=== PATIENT | female | born 1955 | race Caucasian/White ===

== ENCOUNTER 2022-10-25 14:57 | Emergency (ER) | payer MEDICARE ==
[~2022-10-25] VITALS: Ht 157.5 cm; Wt 85.3 kg
[~2022-10-25 14:57] MED LIST: ALPRAZOLAM1 MG PO; CATAPRES0.1 MG PO; MECLIZINE HCL25 MG PO; MIRTAZAPINE15 MG PO; MONTELUKAST SOD10 MG PO; OXYCONTIN10 MG PO; PAROXETINE HCL20 MG PO; PROAIR HFA8.5 GM INH; TIZANIDINE HCL2 M1 PO; ZITHROMAX250 MG PO; ZOFRAN ODT4 MG PO
--- OUTSIDE RECORDS SUMMARY | 2022-10-25 15:00 | XMS ---
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 Rena has no Care Guidelines for this patient. Rachel VISIT COUNT (12 MO.) 1 ADELINA Draper TOTAL 1 NOTE: Visits indicate total known visits. ED/UCC VISIT TRACKING (12 MO.) 10/25/2022 14:58 [facility] [place] TYPE: Emergency COMPLAINT: - ABDOMINAL PAIN INPATIENT VISIT TRACKING (12 MO.) No inpatient visits to display in this time frame [email or web address]
[2022-10-25] MEDS ORDERED: DICYCLOMINE HCL20 MG PO (15:23)
[2022-10-25] MEDS ORDERED: ATENOLOL25 MG PO (15:23)
[2022-10-25] MEDS ORDERED: ALPRAZOLAM1 MG PO (15:23)
[2022-10-25] MEDS ORDERED: DULOXETINE HCL20 MG PO (15:23)
[2022-10-25] MEDS ORDERED: AMOX TR-K CLV1 EAC1 PO (16:57)
[2022-10-25] MEDS ORDERED: ONDANSETRON ODT8 MG PO (16:57)
== END 2022-10-25 17:45 | disposition home or self-care (01) ==
LOC: ED 14:57
DX: K57.32 Diverticulitis of large intestine without perforation or abscess without bleeding (principal); Z87.891 Personal history of nicotine dependence
CPT/HCPCS: 36415; 74177; 80053; 81001; 83690; 85025; 99284-25; A9270; J1885; J7040; Q9967

== ENCOUNTER 2022-11-10 12:47 | Emergency (ER) | payer MEDICARE ==
[~2022-11-10] VITALS: Ht 157.5 cm; Wt 83.9 kg
[~2022-11-10 12:47] MED LIST changes: +AMOX TR-K CLV1 EAC1 PO; +ATENOLOL25 MG PO; +DICYCLOMINE HCL20 MG PO; +DULOXETINE HCL20 MG PO; +ONDANSETRON ODT8 MG PO
--- OUTSIDE RECORDS SUMMARY | 2022-11-10 12:50 | XMS ---
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 Rena has no Care Guidelines for this patient. [facility]12 MO[facility]: Visits indicate total known visits. ED/C VISIT TRACKING (12 MO.) [facility] COMPLAINT: - ABDOMINAL PAIN 10/25/2022 14:[address] [facility] [place] TYPE: Emergency COMPLAINT: - ABDOMINAL PAIN DIAGNOSES: - Personal history of nicotine dependence - Diverticulitis of large intestine without perforation or abscess without bleeding - Lower abdominal pain, unspecified INPATIENT VISIT TRACKING (12 MO.) No inpatient visits to display in this time frame [email or web address]
[2022-11-10] MEDS ORDERED: ONDANSETRON ODT4 MG PO (19:01)
[2022-11-10] MEDS ORDERED: AMOX TR-K CLV1 EAC1 PO (19:01)
== END 2022-11-10 19:09 | disposition home or self-care (01) ==
LOC: ED 12:47
DX: K57.33 Diverticulitis of large intestine without perforation or abscess with bleeding (principal); Z87.891 Personal history of nicotine dependence; Z79.899 Other long term (current) drug therapy
CPT/HCPCS: 36415; 74177; 80053; 81001; 83605; 83690; 85025; 96374; 96375; 99284-25; J1885; J2405; J7121; Q9967

== ENCOUNTER 2023-08-03 14:53 | Emergency (ER) | payer MEDICARE ==
[~2023-08-03] VITALS: Ht 157.5 cm; Wt 84.5 kg
[~2023-08-03 14:53] MED LIST changes: +ONDANSETRON ODT4 MG PO
--- OUTSIDE RECORDS SUMMARY | 2023-08-03 14:57 | XMS ---
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 Rena has no Care Guidelines for this patient. Rachel VISIT COUNT (12 MO.) 3 [facility] NOTE: Visits indicate total known visits. ED/C VISIT TRACKING (12 MO.) 08/03/2023 14:53 [facility] [place] TYPE: Emergency COMPLAINT: - BACK PAIN [facility]23 [facility] DIAGNOSES: - Unspecified fracture of upper end of left humerus, initial encounter for closed fracture - Arm Pain - Shoulder/Arm Pain; Facial Pain 11/10/2022 12:48 [facility] [place] TYPE: Emergency COMPLAINT: - ABDOMINAL PAIN DIAGNOSES: - Diverticulitis of large intestine without perforation or abscess with bleeding - Generalized abdominal pain - Other half-way (current) drug therapy - Personal history of nicotine dependence 10/25/2022 14:58 [facility] [place] TYPE: Emergency COMPLAINT: - ABDOMINAL PAIN DIAGNOSES: - Diverticulitis of large intestine without perforation or abscess without bleeding - Lower abdominal pain, unspecified - Personal history of nicotine dependence INPATIENT VISIT TRACKING (12 MO.) 02/18/2023 09:28 [facility] [place] TYPE: [facility] DIAGNOSES: - Diverticulitis of intestine, part unspecified, without perforation or abscess without bleeding - Diverticulosis of large intestine without perforation or abscess without bleeding [email or web address]
[2023-08-03] MEDS ORDERED: OMEPRAZOLE20 MG PO (15:02)
[2023-08-03 15:51] LABS: EOSINOPHILS 1.2 % (0-6); HEMATOCRIT 39.3 % (35.0-50.0); HEMOGLOBIN 13.5 g/dL (12.0-18.0); MCH 33.2 (27-36); MCHC 34.4 g/dl (30-36); MCV 96.6 fl (81-99); MONOCYTES 6.3 % (0-12); NEUTROPHILS 47.5 % (39-80); PLATELET COUNT 221 K/uL (140-440); RBC 4.07 M/ul (4.3-5.7); RDW 13.7 (10.5-15.0)
[2023-08-03 16:07] LABS: ALBUMIN 3.9 g/dL (3.4-5.0); ALBUMIN/GLOBULIN RATIO 1.22 (1.1-2.4); ANION GAP 13.3 (7-21); BILIRUBIN, TOTAL 0.3 ng/dL (0.2-1.0); BUN/CREATININE RATIO 24.28 (6.0-28.6); CALCIUM 8.8 mg/dL (8.5-10.1); CREATININE, SERUM 0.7 mg/dL (0.55-1.02); POTASSIUM 3.3 mmol/L (3.5-5.1); PROTEIN, TOTAL 7.1 g/dL (6.4-8.2)
[2023-08-03 17:25] LABS: BILIRUBIN, URINE NEGATIVE (negative); BLOOD/HGB, URINE TRACE-I (Negative); KETONE, URINE NEGATIVE (Negative); LEUK ESTERASE, URINE NEGATIVE (negative); NITRITE, URINE NEGATIVE (negative)
[2023-08-03 17:46] LABS: BACTERIA, URINE NONE SEEN /hpf (negative); CASTS, URINE NONE SEEN \\lpf; COLLECTION TYPE, URINE CLEAN CATCH; CRYSTALS, URINE NONE SEEN (0-1+); EPITHELIAL CELLS, URINE 0 /lpf (0-1+); RED BLOOD CELLS, URINE 0-1 /hpf (0-5); REFLEX CULTURE, URINE No (No); WHITE BLOOD CELLS, URINE 0-1 /HPF (0-5)
[2023-08-03 18:35] VITALS: BP 195/85
== END 2023-08-03 18:42 | disposition home or self-care (01) ==
LOC: ED 14:53
PROVIDERS: Emergency Medicine
DX: M54.50 Low back pain, unspecified (principal); Z87.891 Personal history of nicotine dependence; Z79.899 Other long term (current) drug therapy; Z98.1 Arthrodesis status
CPT/HCPCS: 36415; 74177; 80053; 81001; 83690; 85025; 96374; 96375; 99284-25; A9270; J1170; J1885; J7030; Q9967

== ENCOUNTER 2025-01-29 04:58 | Emergency (ER) | payer MEDICARE | END 2025-01-29 05:47 | disposition home or self-care (01) | LOC: ED 04:58 | DX: S60.445A External constriction of left ring finger, initial encounter (principal); S60.512A Abrasion of left hand, initial encounter; X58.XXXA Exposure to other specified factors, initial encounter; Z87.891 Personal history of nicotine dependence ==

== ENCOUNTER 2025-04-24 09:20 | Emergency (ER) | payer OTHER, MEDICARE ==
[~2025-04-24] VITALS: Ht 157.5 cm; Wt 93.0 kg
[~2025-04-24 09:20] MED LIST changes: +OMEPRAZOLE20 MG PO; +PAROXETINE HCL10 MG PO
[2025-04-24] MEDS ORDERED: OXYCODONE/APAP 5/325 TAB PO ONE (09:45)
[2025-04-24] MEDS ORDERED: ONDANSETRON 4 MG TAB ODT SL ONE (09:45)
[2025-04-24] MEDS ORDERED: IBUPROFEN 600 MG TAB PO ONE (09:45)
[2025-04-24] MEDS ORDERED: LOSARTAN POTAS100 MG PO (10:07)
[2025-04-24] MEDS ORDERED: MELOXICAM15 MG PO (10:07)
[2025-04-24] MEDS ORDERED: PREGABALIN75 MG PO (10:07)
[2025-04-24 10:25] VITALS: BP 167/97
== END 2025-04-24 10:33 | disposition home or self-care (01) ==
LOC: ED 09:20
DX: S80.02XA Contusion of left knee, initial encounter (principal); Z96.652 Presence of left artificial knee joint; Z87.891 Personal history of nicotine dependence; Z79.1 Long term (current) use of non-steroidal anti-inflammatories (NSAID); Z79.899 Other long term (current) drug therapy; W01.0XXA Fall on same level from slipping, tripping and stumbling without subsequent striking against object, initial encounter
CPT/HCPCS: 73560; 99283; A9270